=== PATIENT | male | born 1965 | race Caucasian/White ===

== ENCOUNTER 2018-10-23 05:26 | Emergency (ER) | payer OTHER ==
[~2018-10-23] VITALS: Ht 165.1 cm; Wt 73.6 kg
[~2018-10-23 05:26] MED LIST: CEPH-443 PO; HYDR-4011 PO; IBUP-1561 PO; [UNRECOGNIZED DRUG - REMARK]
[2018-10-23 05:30] VITALS: BP 158/90; PULSE 89; RESP 16; Ht 165.1 cm; Wt 73.6 kg
[2018-10-23] MEDS ORDERED: HYDROCODONE/APAP (5/325) TAB PO ONE (06:30)
--- NOTE | 2018-10-23 07:37 | ERD ---
ER Documentation Chief Complaint Chief Complaint L shoulder pain, pt denies injury HPI 53-year-old male presents with complaint of left shoulder pain for the past day. Patient states he denies any injuries. Denies having numbness, tingling, weakness. Denies any treatments. History of diabetes. ROS All systems reviewed and are negative except as per history of present illness. Medications Home Meds Active Scripts Hydrocodone/Acetaminophen ([place] 5-325 Tablet) 1 Each Tablet, 1 TAB PO Q6H PRN for PAIN, #10 TAB Prov:ENRRIQUE BARNARD 10/23/18 Hydrocodone/Acetaminophen ([place] 5-325 Tablet) 1 Each Tablet, 1 TAB PO Q6H PRN for SEVERE PAIN LEVEL 7-10, #20 TAB Prov:ANTONIO TANG NP 01/29/16 Ibuprofen* (Motrin*) 400 Mg Tab, 400 MG PO Q6H PRN for PAIN AND OR ELEVATED TEMP, #30 TAB Prov:ANTONIO TANG NP 01/29/16 Cephalexin* (Keflex*) 500 Mg Capsule, 500 MG PO QID for 10 Days, CAP Prov:ANTONIO TANG NP 01/29/16 Reported Medications [insulin unknown] Unknown Strength No Conflict Check 01/29/16 Allergies Allergies: Coded Allergies: No Known Allergy (Unverified , 01/29/16) PMhx/Soc Medical and Surgical Hx: pt denies Surgical Hx History of Surgery: No Anesthesia Reaction: No Hx Neurological Disorder: No Hx Respiratory Disorders: No Hx Cardiac Disorders: No Hx Psychiatric Problems: No Hx Miscellaneous Medical Probl: Yes (dm) Hx Alcohol Use: Yes (sometimes) Hx Substance Use: No Hx Tobacco Use: No Smoking Status: Never smoker FmHx Family History: No diabetes, No coronary disease, No other Physical Exam Vitals Vital Signs Date Temp Pulse Resp B/P (MAP) Pulse Ox O2 O2 Flow FiO2 Time Delivery Rate 10/23/18 97.8 89 16 158/90 100 05:30 (112) Physical Exam Const: No acute distress Head: Atraumatic Eyes: Normal Conjunctiva ENT: Normal External Ears, Nose and Mouth. Neck: Full range of motion. No meningismus. Resp: Clear to auscultation bilaterally Cardio: Regular rate and rhythm, no murmurs Abd: Soft, non tender, non distended. Normal bowel sounds Skin: No petechiae or rashes Back: No midline or flank tenderness Ext: No cyanosis, or edema Neur: Awake and alert Psych: Normal Mood and Affect Upper Extremity - bilateral: Skin: [No laceration, or evidence of external trauma] Compartments: [Soft] Motor: [Full active range of motion shoulder/elbow/wrist/hand] Sensation: [Intact shoulder/pinky/middle finger/thumb web space] Bones: [Nontender humerus/elbow/forearm/wrist/hand] Snuffbox: [Nontender] Joints: [No effusion] Pulses/Perfusion: [2+ radial, Capillary refill < 2 seconds] Results 24 hrs Current Medications Medications Dose Sig/Hayes Start Time Status Last (Trade) Ordered Route PRN Stop Time Admin Dose Reason Admin 1 tab ONCE ONCE 10/23/18 DC 10/23/18 Acetaminophen PO 06:30 06:26 / 10/23/18 06:31 Hydrocodone Bitart ([place] (5/325)) Procedures/MDM MDM: X-rays were performed results within normal limits. Patient advised to follow-up with his primary care for possible Ortho referral for physical therapy. Patient given Rx for ibuprofen. I have low suspicion for neurovascular compromise, compartment syndrome, fracture, osteomyelitis, septic joint, DVT, or other emergent condition. And I will give patient ibuprofen due to patient's history of diabetes and his uncertain kidney function. Patient given short course of [place] advised to follow-up with primary care. At this time, patient is stable for discharge and outpatient management. I have instructed the patient to follow-up with his/her primary care physician in 1-2 days. I have discussed with the patient the possibility of needing to see a specialist for further workup and imaging studies if symptoms persist. I have instructed the patient to promptly return to the ER for any new or worsening symptoms including but not limited to increased pain, fever, nausea, vomiting, weakness or LOC. The patient and/or family expressed understanding of and agreement with this plan. All questions were answered. Home care instructions were provided. DISCLAIMER: Inadvertent spelling and grammatical errors are likely due to EHR/dictation software use and do not reflect on the overall quality of patient care. Also, please note that the electronic time recorded on this note does not necessarily reflect the actual time of the patient encounter. Departure Diagnosis: Primary Impression: Shoulder pain Condition: Stable ENRRIQUE BARNARD Oct 23, 2018 07:36
[2018-10-23] MEDS ORDERED: HYDR-4011 PO (08:44)
== END 2018-10-23 08:49 | disposition home or self-care (01) ==
LOC: FTE 05:26
DX: M25.512 Pain in left shoulder (principal); E11.9 Type 2 diabetes mellitus without complications
CPT/HCPCS: 73030; Z7502; Z7610